=== PATIENT | female | born 1950 ===

== ENCOUNTER → 2017-04-07 | Outpatient (CLI) | payer MEDICARE ==
[~2017-04-07] MED LIST: BUSP10TA PO; CARV3.12 PO; CHOL100013 PO; CIPR7.5D OT; CLON0.1T PO; FERR-26 PO; GLIM1TAB PO; LEVO125T5 PO; LEVO80CA PO; LOSA25TA4 PO; METF-620 PO; OMEP20CA9 PO; RIVA20TA2 PO; SIMV20TA3 PO; TRIA1CAP3 PO
== END | disposition home or self-care (01) ==
LOC: PNCL 09:40
PROVIDERS: ATTEND Anesthesiology
DX: M54.12 Radiculopathy, cervical region (principal)
CPT/HCPCS: G0463

== ENCOUNTER → 2017-04-21 | Outpatient (CLI) | payer MEDICARE ==
[~2017-04-21] MED LIST changes: +IOHEXOL 180 MG/ML 10 ML VIAL. ONE; +LEVO40CA PO; +LOSA100T6 PO; +MULT-208 PO; +NIFE60TA10 PO; +POTA20TA82 PO; +TRIA1TAB2 PO; +ZOLP5TAB PO; +methylPREDNISolone ACETATE 40 MG/ML VIAL. ONE; +methylPREDNISolone ACETATE 80 MG/ML VIAL. ONE
--- NOTE | 2017-04-21 22:31 | PAIN ---
DATE OF SERVICE: 04/21/2017 PROGRESS NOTE FOR PAIN CLINIC DIAGNOSES: Cervical radiculopathy with cervical spinal stenosis. HISTORY OF PRESENT ILLNESS: The patient is a 66-year-old female who returns for followup status post initial evaluation and preauthorization to hold her Xarelto with her investment specialist which has been approved. She had been off of this now for 4 days and returns today with still significant pain in the base of the neck and shoulders, particularly to the right side causing some headaches, paining in the right arm as well as in the posterior occipital region with significant headaches noted as well. The patient reports pain radiating from the shoulder again into the right upper extremity essentially unchanged from initial evaluation, but again has been off her Xarelto now for about 4 days. The patient reports no new motor or sensory deficits, no new complaints or other concerns at this time. The patient rates her pain as a 6 on a scale of 10 at its worst, it is 2 on a scale of 10 today, it is aching and tight, on and off in intensity, worse with activity, using her upper extremities and reaching above her head on the right side as well as sleeping and she likes to sleep on her right shoulder and arm, which has been disturbing some sleep as well. PHYSICAL EXAMINATION: VITAL SIGNS: Today, the patient's blood pressure is 191/81, pulse 62, respirations are 18, temperature 97.6 degrees Fahrenheit, height is 5 feet 2 inches, weight is 222 pounds. GENERAL: The patient is awake, alert, oriented, appropriate, very pleasant demeanor. HEENT: Shows normocephalic, atraumatic. Extraocular movements are intact and symmetrical. Oral cavity shows mucous membranes moist and pink. Dentition is intact. NECK: Shows anterior throat supple without palpable lymphadenopathy noted. Swallow reflex is symmetrical. CHEST: Shows normal on inspection. Breath sounds clear to auscultation bilaterally. HEART: Shows S1 and S2 clear. No murmurs auscultated. ABDOMEN: Obese, soft, nontender, nondistended. BACK: The patient's back shows spine grossly in the midline. Cervical paraspinous musculature shows some moderate tenderness with palpation in the middle and lower distribution of the cervical paraspinous muscles, but only diffusely. The patient shows good rotational motion both laterally as well as extension and flexion without significant pain reported. EXTREMITIES: Upper extremities showed deep tendon reflexes at 1+ biceps and triceps tendons. Motor exam is approximately 4 on scale of 5 with right clinical psychologist private practice strength and 5/5 on the left. Peripheral pulses are 2+ radial distribution and equal. Options were discussed with the patient and the patient's old chart was reviewed as her current medication regimen updated. Current review of systems updated today as well. We will proceed with the cervical epidural steroid injection today, this is the first in the series with fluoroscopic guidance. Risks were again discussed including, but not limited to bleeding, infection, possibility of epidural hematoma and subsequent neurologic compromise, dural puncture, headaches, spinal cord and/or nerve damage, side effects of steroid medication and poor results regarding pain control. The patient understands and wishes to proceed. The patient will return to clinic in approximately 2 weeks for followup, was counseled on return appointment, activity level and side effects to be aware of. DIAGNOSIS: Cervical radiculopathy with cervical spinal stenosis. PROCEDURE: Cervical epidural steroid injection in translaminar approach at C6-7 level using C-arm fluoroscopic guidance under sterile prep and drape using local anesthetic. MEDICATIONS INJECTED: A 120 mg of Depo-Medrol plus 5 mL of preservative-free normal saline and 2 mL of Isovue for contrast. CONDITION AT DISCHARGE: Stable. The patient tolerated procedure well, had no complications. MACARIO SINGH MD DR: PASQUALE/vida JOB#: [id number] / [id number]
== END | disposition home or self-care (01) ==
LOC: PNCL 10:07
PROVIDERS: ATTEND Anesthesiology
DX: M48.02 Spinal stenosis, cervical region (principal); M54.12 Radiculopathy, cervical region; Z88.1 Allergy status to other antibiotic agents; Z88.2 Allergy status to sulfonamides; Z88.8 Allergy status to other drugs, medicaments and biological substances
CPT/HCPCS: 62321; J1030; J1040

== ENCOUNTER → 2017-05-19 | Outpatient (CLI) | payer MEDICARE ==
--- NOTE | 2017-05-19 18:46 | PAIN ---
DATE OF SERVICE: 05/19/2017 DIAGNOSES: Cervical radiculopathy with cervical spinal stenosis. HISTORY OF PRESENT ILLNESS: The patient is a 66-year-old female who returns for followup status post cervical epidural steroid injection x 1. The patient reports about 90% improvement. In the first 2-1/2, almost 3 weeks, the pain began to gradually return; however, over the past 5 days with significant pain in the base of the neck, right shoulder, upper extremity, right arm and hand radiating, but rates it a 10 on a scale of 10 at its worst, is an 8 on average and a 5 on a scale of 10 today. The patient reports it is radiating, constant, can be more unbearable and more noticeable especially at night with sleeping on her right side. The patient reports she is generally sleeping well, but when she lays on her right side, it does awaken her from sleep occasionally, but not every night. She woke up this morning, was lying on her right side and reported there was only a mild tingling sensation in the shoulder and arm. The patient reports no new motor or sensory loss, still some weakness, fatigability at the right arm, especially with repetitive motions. The patient works as a main entree cook and cashier and using a right arm repetitively most of working day, which does exacerbate the pain and the weakness. PHYSICAL EXAMINATION: VITAL SIGNS: Today, the patient's blood pressure is 179/82, pulse is 47, temperature is 97.4 degrees Fahrenheit, height is 5 feet 2 inches, weighs 221 pounds. GENERAL: The patient is awake, alert, oriented, appropriate, very pleasant demeanor. HEENT: Head shows normocephalic, atraumatic. Extraocular movements are intact and symmetrical. Oral cavity shows mucous membranes moist and pink. Dentition is intact. NECK: Shows anterior throat supple without palpable lymphadenopathy noted. Swallow reflex is symmetrical. CHEST: Shows normal on inspection. Breath sounds are clear to auscultation bilaterally. HEART: Shows S1 and S2 clear. ABDOMEN: Obese, soft, nontender, nondistended. BACK: Shows spine grossly midline. Cervical paraspinous musculature shows symmetrical on inspection with palpation shows some moderate tenderness with palpation bilaterally with deeper palpation in the inferior aspect of the cervical paraspinous musculature, slightly more on the right than the left into the trapezius, but without trigger point. The patient shows good rotational motion of cervical spine, both laterally as well as extension and flexion without significant difficulty or limitation. EXTREMITIES: Upper extremities showed deep tendon reflexes at 1+ in the biceps and triceps tendons. Motor exam is approximately 4 on a scale of 5 with right field merchandiser strength and 5/5 on the left. Peripheral pulses are 2+ radial distribution bilaterally. Options were discussed with the patient and the patient's old chart was reviewed as her current medication regimen updated. Current review of systems is updated on today as well. We will proceed with a second in the series cervical epidural steroid injection with fluoroscopic guidance. Risks were again discussed including, but not limited to bleeding, infection, possibility of epidural hematoma, subsequent neurological compromise, dural puncture, headaches, spinal cord and/or nerve damage, side effects of steroid medication and poor results regarding pain control. The patient understands and wishes to proceed. The patient will return to clinic in approximately 2 weeks for followup. She was counseled to return appointment, activity level and side effects to be aware of. DIAGNOSIS: Cervical radiculopathy with cervical spinal stenosis. PROCEDURE: Cervical epidural steroid injection using a C-arm fluoroscopic guidance under sterile prep and drape using local anesthetic at the C6-C7 level, translaminar approach. MEDICATION INJECTED: A total of 120 mg Depo-Medrol plus 5 mL preservative-free normal saline and 2 mL Isovue contrast. CONDITION AT DISCHARGE: Stable. The patient tolerated procedure well, had no complications. MACARIO SINGH MD DR: PASQUALE/vida JOB#: [id number] / [id number]
== END | disposition home or self-care (01) ==
LOC: PNCL 10:30
PROVIDERS: ATTEND Anesthesiology
DX: M48.02 Spinal stenosis, cervical region (principal); M54.12 Radiculopathy, cervical region; Z88.1 Allergy status to other antibiotic agents; Z88.2 Allergy status to sulfonamides; Z88.8 Allergy status to other drugs, medicaments and biological substances
CPT/HCPCS: 62321; J1030; J1040

== ENCOUNTER → 2017-06-23 | Outpatient (CLI) | payer MEDICARE ==
[~2017-06-23] MED LIST changes: -IOHEXOL 180 MG/ML 10 ML VIAL. ONE; -methylPREDNISolone ACETATE 40 MG/ML VIAL. ONE; -methylPREDNISolone ACETATE 80 MG/ML VIAL. ONE
--- NOTE | 2017-06-23 21:08 | PAIN ---
DATE OF SERVICE: 06/23/2017 DIAGNOSES: Cervical radiculopathy with cervical spinal stenosis. HISTORY OF PRESENT ILLNESS: The patient a 66-year-old female who returns for followup status post cervical epidural steroid injections x 2. The patient reports about 98% improvement, but only for about a week or so after the injection. This has been reproduced twice now. The patient does very well after the injection, but the pain returns after about a week at the base of the neck and shoulders, somewhat more on the right upper extremity than the left, but present bilaterally. The patient reports also having significant pain in the mid upper back as well as the low back. The patient has plain films that she brought with her today, which are just showing some mild to moderate multilevel degenerative changes in both the lumbar and thoracic spines without any specific findings as they are only plain films. The patient reports her pain now is becoming much worse in the mid upper back as well as the low back, constant, aching, tight, radiating, shooting into the bilateral lower extremities at times, but mostly across the low back and in the mid upper back. The patient reports it is a 10 on a scale of 10 at its worst, an 8 on average and about a 2 at least, but only when she is lying flat on her back. She has been having difficulty with it wakening her up at night sporadically, not every night. Reports no new motor or sensory deficits, no new bowel or bladder incontinence, but still significant pain, again worse in the mid upper back as well as the low back with radiation to bilateral lower extremities, right greater than left, but again sporadic. PHYSICAL EXAMINATION: VITAL SIGNS: Today, blood pressure 165/70, pulse 68, respirations are 16, temperature 97.7 degrees Fahrenheit, weight is 223 pounds. GENERAL: The patient is awake, alert, oriented, appropriate, very pleasant demeanor. HEENT: Head shows normocephalic, atraumatic. Extraocular movements are intact and symmetrical. Oral cavity, mucous membranes are moist and pink. Dentition is intact. NECK: Shows anterior throat supple without palpable lymphadenopathy noted. Swallow reflex is symmetrical. CHEST: Shows normal on inspection. Breath sounds clear to auscultation bilaterally. HEART: Shows S1 and S2, clear. ABDOMEN: Soft, nontender, nondistended. No palpable organomegaly is noted. BACK: Shows spine grossly in midline. Palpation of cervical paraspinous muscle shows some moderate tenderness to palpation in the inferior aspect of the cervical paraspinous muscles, but only diffusely without radiation. The patient shows good rotational motion both laterally as well as extension and flexion of the cervical spine without significant difficulty. Mid upper back shows significant tenderness, very firm rope-like musculature throughout the rhomboid distribution as well as the thoracic paraspinous muscles in the middle and upper distribution as well as the mid lower distribution of the thoracic paraspinous muscles and symmetrical, but again very tender to palpation. The patient reports significant relief, however, with pressure palpation over the areas of the musculature in the bilateral paraspinous regions of the thoracic spine. Lumbar paraspinous muscle shows significant tenderness in upper, middle and lower distribution of paraspinous muscles as well bilaterally only less specific as to the thoracic paraspinous muscles, but still diffusely tender bilaterally. No tenderness over the sacrum or sacroiliac regions. EXTREMITIES: The patient's extremities show upper extremity deep tendon reflexes 1+ in the biceps and triceps tendons. Motor exam is approximately 4 on a scale of 5 with right physical therapy technician and 5/5 on the left. Lower extremities show deep tendon reflexes 1+ in the patellar and tendo-calcaneus tendons. Motor exam is strong with 5/5 dorsiflexion, extension, quadriceps and hamstring flexion and symmetrical. Options were discussed with the patient. The patient's old chart was reviewed as her current medication regimen updated. Current review of systems updated today as well. We will order physical therapy for the thoracic spine as well as lumbar distribution for paraspinous musculature and myofascial deep tendon release and massage therapy, ____ treatment as well. Also, MRI scan of the lumbar spine as she is having some increased radicular qualities in the low back pain in the bilateral lower extremities, right greater than left, again sporadically, but significant and very painful. Once these are obtained and physical therapy started, we will have the patient return. Again, she is on Xarelto and we will have her hold this once we have decided the next step is either cervical epidural steroid injection and possibly lumbar treatment depending on her MRI scan of the lumbar spine. The patient understands and agrees and will follow up after MRI scan is completed and physical therapy started. MACARIO SINGH MD DR: Gregg JOB#: [id number] / [id number]
== END | disposition home or self-care (01) ==
LOC: PNCL 10:42
PROVIDERS: ATTEND Anesthesiology
DX: M54.12 Radiculopathy, cervical region (principal); M48.02 Spinal stenosis, cervical region; M25.511 Pain in right shoulder
CPT/HCPCS: G0463